=== PATIENT | female | born 1950 | race Caucasian/White ===

== ENCOUNTER → 2018-05-20 | Day surgery (SDC) | payer MEDICARE, OTHER ==
[2018-05-17 14:19] VITALS: BMI 22.8
[~2018-05-20] MED LIST: ALPRAZolam 0.25 MG TAB PO PRN; ALPRAZolam 0.5 MG TAB PO PRN; ASPIRIN 325 MG TAB PO ONE; ATORVASTATIN 80 MG TAB PO ONE; IOPAMIDOL-250 100ML BTL INTRAARTER ONE; IOPAMIDOL-370 125ML BTL INJ ONE; LIDOCAINE 1% INJ 10MG/ML (20 ML MDV) SQ ONE; MIDAZOLAM 2 MG/2 ML VIAL IV ONE; ONDANSETRON 4 MG/2 ML VIAL ONE; RX INFO: IV CONTRAST WAS GIVEN 1 EACH MISC MISCELLANE PRN; SODIUM CHLORIDE 0.9% 1,000 ML IV SCH; SODIUM CHLORIDE 0.9% 1,000 ML in EMPTY BAG 1 BAG IV ONE; fentaNYL (PF) 50 MCG/ML 2 ML AMP IV ONE; hydrALAZINE HCL 20 MG/ML 1 ML VIAL IVP STA; hydrALAZINE HCL 20 MG/ML 1 ML VIAL ONE
[2018-05-20 08:29] VITALS: TEMP 97.8
[2018-05-20 08:51] LABS: Basophils % (A) 0 %; Eosinophils # (A) 0.2 k/uL (0-0.7); Eosinophils % (A) 2 %; HCT 42.4 % (34.0-46.0); HGB 13.5 gm/dL (11.4-16.0); Lymphocytes # (A) 1.5 k/uL (1.0-4.8); Lymphocytes % (A) 15 %; MCH 30.4 pg (25.0-35.0); MCHC 31.8 g/dL (31.0-37.0); MCV 95.6 fL (80.0-100.0); Mean Platelet Volume 8.7; Monocytes # (A) 0.4 k/uL (0-1.0); Monocytes % (A) 4 %; Neutrophils # (A) 7.6 k/uL (1.3-7.7); Neutrophils % (A) 77 %; Platelet Count 230 k/uL (150-450); RBC 4.43 m/uL (3.80-5.40); RDW 14.5 % (11.5-15.5); WBC 9.9 k/uL (3.8-10.6)
[2018-05-20 09:00] LABS: Calcium 9.6 mg/dL (8.4-10.2)
--- NOTE | 2018-05-20 11:13 | CC ---
CARDIAC CATHETERIZATION REPORT DATE OF SERVICE: 05/20/2018 PERFORMING PHYSICIAN: Anirudh Banuelos MD, [employer]. PROCEDURE PERFORMED: 1. Selective right and left coronary angiogram. 2. Left heart catheterization. 3. Abdominal aortogram. 4. Gradient measurement across the distal abdominal aorta. INDICATION: This is a pleasant 67-year-old female patient with known history of coronary artery disease and prior stenting of the RCA and left circumflex, who was experiencing symptoms of chest discomfort concerning for angina. She also was experiencing bilateral lower extremities discomfort. She is known to have peripheral arterial disease and known to have intermediate disease involving the infrarenal aorta. Because of that, she was brought today to undergo a heart catheterization and abdominal aortogram. APPROACH: Right common femoral artery. COMPLICATION: None. LEVEL OF SEDATION: Moderate with sedation length of 20 minutes. PROCEDURE DESCRIPTION: After obtaining an informed consent, the patient was brought to the cardiac minilab operator. The right common femoral artery was cannulated using micropuncture technique and a micropuncture wire passed easily. Then I placed a 6-[place] sheath in the right common femoral artery. After that, I did selective right and left coronary angiogram using JR4 and JL4 catheters. Left heart catheterization was performed using 6-[place]ian pigtail catheter. Then I did an abdominal aortogram using 6-[place]ian pigtail catheter as well. The procedure was completed without any complication. SELECTIVE CORONARY ANGIOGRAM: 1. The right coronary artery is a large caliber vessel and it is a dominant vessel. The proximal RCA is stented with mild in-stent restenosis appeared to be in the range of 30%. The mid RCA has mild disease only and RCA distally appeared to have mild disease only and bifurcates into PDA and PLV branches, both are angiographically normal. 2. The left main is angiographically normal. It bifurcates into the left circumflex and left anterior descending artery. 3. The left circumflex is a medium to large caliber vessel. It is a nondominant vessel. The ostial and proximal left circumflex appeared to have a plaque in the range of 50%. The proximal left circumflex is stented and the stent is patent. The left circumflex distally appeared to be angiographically normal with the circ in the midportion gives rise into OM branch which appeared to be angiographically normal. 4. The LAD, the proximal LAD appeared to have mild disease only. It gives rise into a large diagonal branch which appeared to be angiographically normal. The mid LAD appeared to be normal and the LAD distally appeared to be normal as well. HEMODYNAMICS: The left ventricular end-diastolic pressure appeared to be in the range of 12 mmHg with mild gradient across the aortic valve. ABDOMINAL AORTOGRAM: The abdominal aortogram was performed in the AP projection and using a power injection under DSA. The angiogram revealed intermediate disease involving the distal abdominal aorta just above the bifurcation in to right and left common iliac artery and disease appeared to be in the range of 50%, seems to be angiographically unchanged compared before. I did a gradient measurement across it and that came into be at 15 mmHg, which is still not significant. CONCLUSION: 1. Mild in-stent restenosis involving right coronary artery stent proximally. 2. Patent stent in the proximal left circumflex. There was intermediate disease involving the ostial left circumflex. 3. Mild disease involving the left anterior descending artery. 4. Intermediate disease involving the distal abdominal aorta. A gradient measurement across it came into be 15 mmHg. POSTPROCEDURE MANAGEMENT: 1. Maximize medical treatment. 2. Follow up with the patient. MMODL / IJN: [id number] /
[2018-05-20 11:41] VITALS: RESP 16
[2018-05-20 14:01] VITALS: BP 123/72; PULSE 75
== END ==
LOC: CATHCVL 08:07
PROVIDERS: ATTEND Internal Medicine Interventional Cardiology
DX: I25.10 Atherosclerotic heart disease of native coronary artery without angina pectoris (principal); T82.855A Stenosis of coronary artery stent, initial encounter; I77.9 Disorder of arteries and arterioles, unspecified; I73.9 Peripheral vascular disease, unspecified; I10 Essential (primary) hypertension; E78.5 Hyperlipidemia, unspecified; E78.00 Pure hypercholesterolemia, unspecified; J44.9 Chronic obstructive pulmonary disease, unspecified; Z95.5 Presence of coronary angioplasty implant and graft; Z79.82 Long term (current) use of aspirin; Z79.51 Long term (current) use of inhaled steroids; Z79.899 Other long term (current) drug therapy; Z79.1 Long term (current) use of non-steroidal anti-inflammatories (NSAID); Z82.49 Family history of ischemic heart disease and other diseases of the circulatory system; Z72.0 Tobacco use; Z88.8 Allergy status to other drugs, medicaments and biological substances; Z88.5 Allergy status to narcotic agent
CPT/HCPCS: 93458; 75625; 75716; 80048; 85025; C1760; C1894; C1769 ×2; J2250; J0360; J2001; J3010; Q9966; Q9967; 36200

== ENCOUNTER → 2021-05-08 | Outpatient (CLI) | payer MEDICARE ==
--- NOTE | 2021-05-11 03:25 | MR ---
EXAMINATION TYPE: MR wrist LT wo con DATE OF EXAM: 05/08/2021 COMPARISON: None HISTORY: Pain in left wrist for a couple months. Multiplanar multiecho imaging of the left wrist without contrast. Carpal bones are intact. Radiocarpal joint is intact. The metacarpals are intact. Intercarpal joint s paces are fairly normal. I see no focal bone destruction. The triangular cartilage appears fairly nor mal. The wrist the ulnar collateral ligament shows increased signal and separation from the distal ul na. IMPRESSION: There is evidence of a tear of the ulnar collateral ligament with edema and soft tissue swelling. No fracture line seen.
== END | disposition home or self-care (01) ==
LOC: RADMRIMAIN 11:48
PROVIDERS: ATTEND Orthopaedic Surgery
DX: S63.592A Other specified sprain of left wrist, initial encounter (principal); X58.XXXA Exposure to other specified factors, initial encounter

== ENCOUNTER 2022-05-09 02:15 | Observation (INO) | payer MEDICARE, OTHER ==
[2022-05-09] MEDS ORDERED: LORazepam 2 MG/ML INJ IV STA (02:24)
[2022-05-09 02:41] LABS: Basophils % (A) 0 %; Eosinophils # (A) 0.1 k/uL (0-0.7); Eosinophils % (A) 1 %; HCT 37.9 % (34.0-46.0); HGB 12.7 gm/dL (11.4-16.0); Lymphocytes # (A) 0.5 k/uL (1.0-4.8); Lymphocytes % (A) 4 %; MCH 31.4 pg (25.0-35.0); MCHC 33.5 g/dL (31.0-37.0); MCV 93.6 fL (80.0-100.0); Mean Platelet Volume 10.2; Monocytes # (A) 0.1 k/uL (0-1.0); Monocytes % (A) 1 %; Neutrophils # (A) 10.9 k/uL (1.3-7.7); Neutrophils % (A) 94 %; Platelet Count 188 k/uL (150-450); RBC 4.05 m/uL (3.80-5.40); RDW 13.7 % (11.5-15.5); WBC 11.6 k/uL (3.8-10.6)
[2022-05-09 02:53] LABS: Albumin 3.4 g/dL (3.5-5.0); Calcium 8.6 mg/dL (8.4-10.2); Magnesium 1.4 mg/dL (1.6-2.3); Potassium 4.3 mmol/L (3.5-5.1); Total Bilirubin 0.4 mg/dL (0.2-1.3); Total Protein 5.8 g/dL (6.3-8.2)
[2022-05-09 03:03] LABS: INR 0.9 (<1.2); Partial Thromboplastin Time 21.7 sec (22.0-30.0); Prothrombin Time 10.2 sec (9.0-12.0)
[2022-05-09] MEDS ORDERED: KETOROLAC 15 MG/ML 1 ML VIAL IVP STA (03:23)
[2022-05-09] MEDS: MAGNESIUM SULFATE-D5W PMX 1 GM in DEXTROSE/WATER 1 100ML.BAG IVPB SCH ×2 (03:28→04:14)
[2022-05-09] MEDS ORDERED: NALOXONE 0.4 MG/ML 1 ML VIAL IV PRN (03:29)
--- NOTE | 2022-05-09 03:29 | ED ---
General Adult HPI - General Chief complaint: Chest Pain Stated complaint: chest pain Time Seen by Provider: 05/09/22 02:18 Source: patient, RN notes reviewed, old records reviewed Mode of arrival: ambulatory Limitations: no limitations - History of Present Illness Initial comments: Patient is a 71-year-old female with past medical history remarkable for anxiety, COPD, [place] who presents emergency Department complaining of chest pain earlier this evening. Was a typical style left-sided chest pain with sudden onset and she states no other symptoms.. History of 3 stents placed in 2009. She had chest pain at home earlier this evening with no associated complaints. States it was left-sided. Presented to [facility] which was found to have hypertension. They did order nitro/aspirin however her chest pain resolved prior to receiving any form of medication per ER doc at [place]. Blood pressure improved as well. She did receive an anxiolytic which did help with her anxiety. This did seem to help with her symptoms as well. Workup at the outside hospital was unremarkable. Chest x-ray showed no acute cardiopulmonary process per read. EKG unremarkable. I spoke with the transfer physician, who was looking to transfer the patient to our facility as her pharmacy technology instructor is here. Transfer was accepted. Patient arrives in his remaining asymptomatic but states she does feel somewhat anxious. Denies any chest pain, shortness of breath or other symptoms at this time. Presents for further evaluation for her cardiac symptoms at the outside facility that had a negative workup. - Related Data Home Medications Medication Instructions Recorded Confirmed ALPRAZolam 0.25 mg PO DAILY 06/20/14 05/20/18 Albuterol Sulfate [Proair Hfa] 2 puff INHALATION BID 06/20/14 05/20/18 Fluticasone Propionate 1 spr EA NOSTRIL 06/20/14 05/20/18 hydroCHLOROthiazide [Hydrodiuril] 12.5 mg PO DAILY 06/20/14 05/17/18 Pantoprazole Sodium [Protonix] 40 mg PO DAILY 12/30/15 05/17/18 Aspirin 81 mg PO HS 05/17/18 05/20/18 Budesonide-Formot 160-4.5 Mcg 2 puff INHALATION BID 05/17/18 05/20/18 [Symbicort 160-4.5 Mcg Inhaler] Fexofenadine HCl [Philomena Allergy] 180 mg PO DAILY 05/17/18 05/20/18 Potassium Chloride ER [K-Dur 10] 20 meq PO DAILY 05/17/18 05/17/18 Raloxifene [Evista] 60 mg PO DAILY 05/17/18 05/17/18 Umeclidinium [place] [Incruse 1 puff INHALATION DAILY 05/17/18 05/17/18 Ellipta] Zolpidem Tartrate [Ambien] 10 mg PO HS 05/17/18 05/20/18 carvediloL [Coreg] 6.25 mg PO HS 05/17/18 05/20/18 carvediloL [Coreg] 12.5 mg PO DAILY 05/17/18 05/20/18 Previous Rx's Medication Instructions Recorded Atorvastatin [Lipitor] 80 mg PO HS #90 tab 01/04/16 Losartan [Cozaar] 50 mg PO DAILY #90 tab 01/04/16 Allergies Allergy/AdvReac Type Severity Reaction Status Date / Time cilostazol [From Pletal] Allergy MIGRAINE Verified 05/09/22 02:18 codeine phosphate Allergy Hallucinati Verified 05/09/22 02:18 [From Tylenol-Codeine #3] ons isosorbide mononitrate Allergy MIGRAINE Verified 05/09/22 02:18 [From Imdur] Latex, Natural Rubber Allergy Unknown Verified 05/09/22 02:18 nitroglycerin AdvReac migraine Verified 05/09/22 02:18 pseudoephedrine HCl AdvReac INCREASED Verified 05/09/22 02:18 [From Sudafed] HEART RATE Review of Systems ROS Statement: Those systems with pertinent positive or pertinent negative responses have been documented in the HPI. Review of Systems: CONST: Denies fever EYES: Denies blurry vision ENT: Denies nasal congestion C/V: Denies Chest pain RESP: Denies shortness of breath GI: Denies abdominal pain : Denies dysuria SKIN: Denies rash. MSK: Denies joint pain. NEURO: Denies headache ROS Other: All systems not noted in ROS Statement are negative. Past Medical History Past Medical History: Coronary Artery Disease (CAD), COPD, GERD/Reflux, Hyperlipidemia, Hypertension, Myocardial Infarction ([place]), Seizure Disorder Additional Past Medical History / Comment(s): STATES HAD MULT SEIZURES , HX MIGRAINE, ANGE FEET/LEGS NUMBNESS/BURNING, 2 thyroid nodules Last Myocardial Infarction Date:: 2009 History of Any Multi-Drug Resistant Organisms: None Reported Past Surgical History: Adenoidectomy, Appendectomy, Cholecystectomy, Heart Catheterization With Stent, Hysterectomy, Orthopedic Surgery, Tonsillectomy Additional Past Surgical History / Comment(s): LEFT SHOULDER, STENT X3, lasik surgery eye, Past Anesthesia/Blood Transfusion Reactions: Postoperative Nausea & Vomiting (PONV) Additional Past Anesthesia/Blood Transfusion Reaction / Comment(s): ALSO STATES "HAD HARD TIME WAKING UP" POST CHOLECYSTECTOMY Date of Last Stent Placement:: 2015 Past Psychological History: Anxiety Smoking Status: Former smoker Past Alcohol Use History: Occasional Past Drug Use History: None Reported - Past Family History Father Family Medical History: Myocardial Infarction ([place]) Mother Family Medical History: Cancer Additional Family Medical History / Comment(s): BREAST General Exam - General Exam Comments Initial Comments: General: Appears in no acute distress. HEAD: Normal with no signs of head trauma. EYES: PERRLA, EOMI, conjunctiva normal, no discharge. ENT: Hearing grossly intact, normal oropharynx. RESPIRATORY: Clear breath sounds bilaterally. No wheezes, rales, or rhonchi. C/V: Regular rate and rhythm. S1 and S2 auscultated, no edema, peripheral pulses 2+ and intact throughout ABD: Abd is soft, nontender, nondistended EXT: Normal range of motion, no obvious deformity SKIN: No rashes or lesions observed on exposed skin. NEURO: Alert and oriented 4. No focal deficits. Limitations: no limitations Course Vital Signs 05/09/22 05/09/22 02:19 02:30 Temperature 98.2 F Pulse Rate 84 83 Respiratory 18 16 Rate Blood Pressure 181/103 161/90 O2 Sat by Pulse 99 94 L Oximetry Medical Decision Making - Medical Decision Making Based on the patient's presentation and physical exam, I'm concerned for cardiopulmonary etiology for her symptoms that she expressed earlier this evening. Heart score is moderate, and therefore she was transferred here for cardiac observation to be evaluated by her pharmacy technology instructor. She already received aspirin at the outside facility. Did not require any medications to improve her symptoms at the outside facility. Does feel somewhat anxious and I did order an Ativan for her at this time. We will repeat blood work as well as EKG. Vital signs within acceptable limits. EKG showed no signs of acute ischemia. Laboratory studies show mild hypomagnesemia. Otherwise no significant findings. Troponin is undetectable. On reevaluation, patient does have a mild headache and she will be given Toradol. I updated her on her negative workup. She'll be admitted to observation. She was in agreement this plan. We will trend her troponins. Cardiology will be consulted. I spoke with city call observation, Dr. Rosas of [facility] who accepted the patient. Patient was admitted in stable condition to telemetry bed. Patient was in agreement this plan. - Lab Data Result diagrams: 05/09/22 02:32 05/09/22 02:32 Lab Results 05/09/22 05/09/22 05/09/22 Range/Units 02:32 02:32 02:32 WBC 11.6 H (3.8-10.6) k/uL RBC 4.05 (3.80-5.40) m/uL Hgb 12.7 (11.4-16.0) gm/dL Hct 37.9 (34.0-46.0) % MCV 93.6 (80.0-100.0) fL MCH 31.4 (25.0-35.0) pg MCHC 33.5 (31.0-37.0) g/dL RDW 13.7 (11.5-15.5) % Plt Count 188 (150-450) k/uL MPV 10.2 Neutrophils % 94 % Lymphocytes % 4 % Monocytes % 1 % Eosinophils % 1 % Basophils % 0 % Neutrophils # 10.9 H (1.3-7.7) k/uL Lymphocytes # 0.5 L (1.0-4.8) k/uL Monocytes # 0.1 (0-1.0) k/uL Eosinophils # 0.1 (0-0.7) k/uL Basophils # 0.0 (0-0.2) k/uL PT 10.2 (9.0-12.0) sec INR 0.9 (<1.2) APTT 21.7 L (22.0-30.0) sec Sodium 140 (137-145) mmol/L Potassium 4.3 (3.5-5.1) mmol/L Chloride 110 H (98-107) mmol/L Carbon Dioxide 21 L (22-30) mmol/L Anion Gap 9 mmol/L BUN 31 H (7-17) mg/dL Creatinine 1.08 H (0.52-1.04) mg/dL Est GFR (CKD-EPI)AfAm 59 (>60 ml/min/1.73 sqM) Est GFR (CKD-EPI)NonAf 52 (>60 ml/min/1.73 sqM) Glucose 174 H (74-99) mg/dL Calcium 8.6 (8.4-10.2) mg/dL Magnesium 1.4 L (1.6-2.3) mg/dL Total Bilirubin 0.4 (0.2-1.3) mg/dL AST 28 (14-36) U/L ALT 21 (4-34) U/L Alkaline Phosphatase 93 (38-126) U/L Troponin I (0.000-0.034) ng/mL Total Protein 5.8 L (6.3-8.2) g/dL Albumin 3.4 L (3.5-5.0) g/dL 05/09/22 Range/Units 02:32 WBC (3.8-10.6) k/uL RBC (3.80-5.40) m/uL Hgb (11.4-16.0) gm/dL Hct (34.0-46.0) % MCV (80.0-100.0) fL MCH (25.0-35.0) pg MCHC (31.0-37.0) g/dL RDW (11.5-15.5) % Plt Count (150-450) k/uL MPV Neutrophils % % Lymphocytes % % Monocytes % % Eosinophils % % Basophils % % Neutrophils # (1.3-7.7) k/uL Lymphocytes # (1.0-4.8) k/uL Monocytes # (0-1.0) k/uL Eosinophils # (0-0.7) k/uL Basophils # (0-0.2) k/uL PT (9.0-12.0) sec INR (<1.2) APTT (22.0-30.0) sec Sodium (137-145) mmol/L Potassium (3.5-5.1) mmol/L Chloride (98-107) mmol/L Carbon Dioxide (22-30) mmol/L Anion Gap mmol/L BUN (7-17) mg/dL Creatinine (0.52-1.04) mg/dL Est GFR (CKD-EPI)AfAm (>60 ml/min/1.73 sqM) Est GFR (CKD-EPI)NonAf (>60 ml/min/1.73 sqM) Glucose (74-99) mg/dL Calcium (8.4-10.2) mg/dL Magnesium (1.6-2.3) mg/dL Total Bilirubin (0.2-1.3) mg/dL AST (14-36) U/L ALT (4-34) U/L Alkaline Phosphatase (38-126) U/L Troponin I <0.012 (0.000-0.034) ng/mL Total Protein (6.3-8.2) g/dL Albumin (3.5-5.0) g/dL - EKG Data -: EKG Interpreted by Me EKG Comments: 12-lead Electrocardiogram Interpretation Note EKG was reviewed and interpreted by myself. 12-lead ECG performed at [facility] is interpreted by me as revealing normal sinus rhythm with occasional PVC at a rate of 80 beats per minute. [place] is normal. GA interval is 172 ms, QRS duration is 93 ms, QTc is 415 ms.. There were no ST or T wave abnormalities to suggest myoc ardial ischemia or injury. R wave progression across the precordium was satisfactory. By my interpretation this EKG is non-diagnostic for acute ischemia. No significant changes when compared with prior EKGs from 2016, or with EKG from [place]. Disposition Clinical Impression: Chest pain Disposition: ADMITTED IP TO THIS [facility] Condition: Stable Referrals: Michael Vergara MD [Primary Care Provider] - 1-2 days Time of Disposition: 03:15
[2022-05-09] MEDS ORDERED: ASPIRIN 325 MG TAB PO STA (04:19)
[2022-05-09] MEDS ORDERED: ATORVASTATIN 80 MG TAB PO STA (04:19)
--- NOTE | 2022-05-09 04:19 | P.HPIM ---
History of Present Illness H&P Date: 05/09/22 Patient is a 71-year-old female with a PMH of coronary artery disease status post 3 stents, hypertension, hyperlipidemia, COPD, and anxiety who presents to the emergency room with complaints of chest discomfort. The patient reports that she suddenly developed chest discomfort yesterday evening, pressure and sharp in nature, substernal and left-sided, nonradiating, constant, 5 out of 10 on maximal intensity. She initially attributed her symptoms to her anxiety but after his symptoms worsened, she decided to go to the emergency room. The patient initially presented to [facility] where she was noted to be in hypertensive urgency. She was given anxiolytics and antihypertensives and subsequently sent to [facility] emergency room for cardiology evaluation. Patient reports that her chest discomfort Ramirez significantly improved after arrival at the emergency room, currently rated at a 2 out of 10. She denied experiencing shortness of breath, nausea, vomiting, diaphoresis, or dizziness. Denied fever, chills, cough, lower extremities swelling, lower extremity pain. EKG in the emergency room reveals sinus rhythm with PVCs at 80 bpm. Laboratory evaluation revealed a troponin of less than 0.012. Review of systems: Pertinent positives and negatives as discussed in HPI, a complete review of systems was performed and all other systems are negative. Physical examination: General: non toxic, no distress, appears at stated age, normal weight Derm: no unusual rashes/lesions, warm Head: atraumatic, normocephalic, symmetric Eyes: EOMI, no lid lag, anicteric sclera, pupils equal round reactive to light ENT: Nose and ears atraumatic Neck: No cervical lymphadenopathy, trachea midline, supple Mouth: no lip lesion, mucus membranes moist Cardiovascular: S1S2 reg, no murmur, positive dorsalis pedis pulse bilateral, no edema Lungs: CTA bilateral, no rhonchi, no rales, no accessory muscle use Abdominal: soft, nontender to palpation, no guarding Ext: muscle strength 5 out of 5 in all 4 extremities grossly, no gross muscle atrophy, no contractures, Neuro: CN II-XI grossly intact, no gross focal neuro deficits Psych: Alert, oriented, appropriate affect Assessment/plan Chest pain, rule out ACS -Cardiology consult -Cardiac monitoring -Trend troponin -Continue with aspirin, statin -Echocardiogram Prerenal azotemia -Gentle IV hydration -Monitor BMP Leukocytosis -No signs of active infection at this time -Likely due to acute stressor DVT prophylaxis -Heparin subcu The patient is admitted with an anticipated less than 2 midnight stay for evaluation of chest pain. CODE STATUS: Full Code Discussed with: Patient Anticipated discharge date: In a.m. Anticipated discharge place: Home Past Medical History Past Medical History: Coronary Artery Disease (CAD), COPD, GERD/Reflux, Hyperlipidemia, Hypertension, Myocardial Infarction ([place]), Seizure Disorder Additional Past Medical History / Comment(s): STATES HAD MULT SEIZURES INFANT, HX MIGRAINE, ANGE FEET/LEGS NUMBNESS/BURNING, 2 thyroid nodules Last Myocardial Infarction Date:: 2009 History of Any Multi-Drug Resistant Organisms: None Reported Past Surgical History: Adenoidectomy, Appendectomy, Cholecystectomy, Heart Catheterization With Stent, Hysterectomy, Orthopedic Surgery, Tonsillectomy Additional Past Surgical History / Comment(s): LEFT SHOULDER, STENT X3, lasik surgery eye, Past Anesthesia/Blood Transfusion Reactions: Postoperative Nausea & Vomiting (PONV) Additional Past Anesthesia/Blood Transfusion Reaction / Comment(s): ALSO STATES "HAD HARD TIME WAKING UP" POST CHOLECYSTECTOMY Date of Last Stent Placement:: 2015 Past Psychological History: Anxiety Smoking Status: Former smoker Past Alcohol Use History: Occasional Past Drug Use History: None Reported - Past Family History Father Family Medical History: Myocardial Infarction ([place]) Mother Family Medical History: Cancer Additional Family Medical History / Comment(s): BREAST Medications and Allergies Home Medications Medication Instructions Recorded Confirmed Type ALPRAZolam 0.25 mg PO DAILY 06/20/14 05/20/18 History Albuterol Sulfate [Proair Hfa] 2 puff INHALATION BID 06/20/14 05/20/18 History Fluticasone Propionate 1 spr EA NOSTRIL HS 06/20/14 05/20/18 History hydroCHLOROthiazide [Hydrodiuril] 12.5 mg PO DAILY 06/20/14 05/17/18 History Pantoprazole Sodium [Protonix] 40 mg PO DAILY 12/30/15 05/17/18 History Atorvastatin [Lipitor] 80 mg PO HS #90 tab 01/04/16 05/20/18 Rx Losartan [Cozaar] 50 mg PO DAILY #90 tab 01/04/16 05/17/18 Rx Aspirin 81 mg PO HS 05/17/18 05/20/18 History Budesonide-Formot 160-4.5 Mcg 2 puff INHALATION BID 05/17/18 05/20/18 History [Symbicort 160-4.5 Mcg Inhaler] Fexofenadine HCl [Philomena Allergy] 180 mg PO DAILY 05/17/18 05/20/18 History Potassium Chloride ER [K-Dur 10] 20 meq PO DAILY 05/17/18 05/17/18 History Raloxifene [Evista] 60 mg PO DAILY 05/17/18 05/17/18 History Umeclidinium [place] [Incruse 1 puff INHALATION DAILY 05/17/18 05/17/18 History Ellipta] Zolpidem Tartrate [Ambien] 10 mg PO HS 05/17/18 05/20/18 History carvediloL [Coreg] 6.25 mg PO HS 05/17/18 05/20/18 History carvediloL [Coreg] 12.5 mg PO DAILY 05/17/18 05/20/18 History Allergies Allergy/AdvReac Type Severity Reaction Status Date / Time cilostazol [From Pletal] Allergy MIGRAINE Verified 05/09/22 02:18 codeine phosphate Allergy Hallucinati Verified 05/09/22 02:18 [From Tylenol-Codeine #3] ons isosorbide mononitrate Allergy MIGRAINE Verified 05/09/22 02:18 [From Imdur] Latex, Natural Rubber Allergy Unknown Verified 05/09/22 02:18 nitroglycerin AdvReac migraine Verified 05/09/22 02:18 pseudoephedrine HCl AdvReac INCREASED Verified 05/09/22 02:18 [From Sudafed] HEART RATE Physical Exam Vitals: Vital Signs Temp Pulse Resp BP Pulse Ox 05/09/22 03:30 78 15 143/66 96 05/09/22 02:30 83 16 161/90 94 L 05/09/22 02:19 98.2 F 84 18 181/103 99 Intake and Output 05/08/22 05/08/22 05/09/22 14:59 22:59 06:59 Other: Weight 61.689 kg Results CBC & Chem 7: 05/09/22 02:32 05/09/22 02:32 Labs: Abnormal Lab Results - Last 24 Hours (Table) 05/09/22 05/09/22 05/09/22 Range/Units 02:32 02:32 02:32 WBC 11.6 H (3.8-10.6) k/uL Neutrophils # 10.9 H (1.3-7.7) k/uL Lymphocytes # 0.5 L (1.0-4.8) k/uL APTT 21.7 L (22.0-30.0) sec Chloride 110 H (98-107) mmol/L Carbon Dioxide 21 L (22-30) mmol/L BUN 31 H (7-17) mg/dL Creatinine 1.08 H (0.52-1.04) mg/dL Glucose 174 H (74-99) mg/dL Magnesium 1.4 L (1.6-2.3) mg/dL Total Protein 5.8 L (6.3-8.2) g/dL Albumin 3.4 L (3.5-5.0) g/dL
[2022-05-09] MEDS ORDERED: HEPARIN SODIUM,PORCINE/PF 5,000 UNIT/0.5 ML SYRINGE SQ SCH (08:00)
[2022-05-09] MEDS ORDERED: SYMBICORT 160-4.5 MCG INHALER INHALATION SCH (08:00)
[2022-05-09] MEDS ORDERED: ALBUTEROL NEBULIZED 2.5 MG/3 ML INHALATION SCH (08:00)
[2022-05-09] MEDS ORDERED: ACETAMINOPHEN TAB 325 MG TAB PO PRN (08:36)
[2022-05-09 08:49] VITALS: BP 157/90; PULSE 77; RESP 14; TEMP 97.7
[2022-05-09] MEDS ORDERED: carvediloL 12.5 MG TAB PO SCH (09:00)
[2022-05-09] MEDS ORDERED: LOSARTAN 50 MG TAB PO SCH (09:00)
[2022-05-09] MEDS ORDERED: hydroCHLOROthiazide 12.5 MG CAP PO SCH (09:00)
--- NOTE | 2022-05-09 12:27 | CA ---
Transthoracic Echo Report Name: Sofia Lacey Age: 71 Gender: F : 1950 Exam Date: 05/09/2022 09:38 Exam Location: [place] [facility] Ht (in): 62 Wt (lb): 136 Ordering Physician: Caitlin Arciniega Attending/Referring Phys: Soap Maker Yarely Ortiz RDCS Procedure CPT: Indications: CP Cardiac Hx: Technical Quality: Good Contrast 1: N/A Total Dose (mL): Contrast 2: Total Dose (mL): MEASUREMENTS (Male / Female) Normal Values 2D ECHO LV Diastolic Diameter PLAX 3.2 cm 4.2 - 5.9 / 3.9 - 5.3 cm LV Systolic Diameter PLAX 2.8 cm IVS Diastolic Thickness 1.1 cm 0.6 - 1.0 / 0.6 - 0.9 cm LVPW Diastolic Thickness 1.1 cm 0.6 - 1.0 / 0.6 - 0.9 cm LV Relative Wall Thickness 0.7 LA Volume 40.8 cm??? 18 - 58 / 22 - 52 cm??? M-MODE MV E Point Septal Separation 1.3 cm DOPPLER MV Area PHT 3.4 cm??? Mitral E Point Velocity 48.6 cm/s Mitral A Point Velocity 81.5 cm/s Mitral E to A Ratio 0.6 MV Deceleration Time 221.9 ms MV E' Velocity 3.5 cm/s Mitral E to MV E' Ratio 13.8 TR Peak Velocity 223.9 cm/s TR Peak Gradient 20.1 mmHg Right Ventricular Systolic Press 24.5 mmHg FINDINGS Left Ventricle Left ventricular ejection fraction is estimated at 50-55 %. Mildly increased left ventricular wall thickness. Right Ventricle Normal right ventricular size and function. Right ventricular systolic pressure within normal limits. Right Atrium Normal right atrial size. Left Atrium Normal left atrial size. Mitral Valve Structurally normal mitral valve. Mild mitral regurgitation. Aortic Valve Trileaflet aortic valve. Tricuspid Valve Structurally normal tricuspid valve. Mild tricuspid regurgitation. Pulmonic Valve Structurally normal pulmonic valve. Pericardium Normal pericardium. Aorta Normal size aortic root and proximal ascending aorta. CONCLUSIONS Morning concentric left ventricular hypertrophy with normal LV systolic function Mild mitral regurgitation Mild tricuspid regurgitation Previewed by: Dr. Nikita Encarnacion MD (Electronically Signed) Final Date: 09 May 2022 12:26
--- NOTE | 2022-05-09 12:57 | P.DS ---
Providers Date of admission: 05/09/22 03:30 Expected date of discharge: 05/09/22 Attending physician: Derrick Rosas MD Consults: 05/09/22 03:29 Consult Physician Routine Consulting Provider: [facility] Consult Reason/Comments: chest pain Do you want consulting provider notified?: Yes, Notify in am Primary care physician: Michael Vergara MD Hospital Course: Discharge Diagnosis: Chest pain, acute coronary event ruled out. Hypertensive urgency, patient started on losartan 50 mg daily in addition to her normal antihypertensive medication regimen consisting of hydrochlorothiazide 25 mg daily, carvedilol 12.5 mg each morning and 6.25 mg nightly.. Hospital Course: Patient is a very pleasant 71-year-old female with a past medical history of coronary artery disease status post stent placement, hypertension, hyperlipidemia, COPD, and anxiety. She presented to the emergency department with a chief complaint of chest discomfort. Patient reported noticing some chest discomfort yesterday afternoon described as a sharp pain to left anterior chest. She reports initially she contributed these symptoms to her anxiety but states she checked her blood pressure and noticed that it was a very high so she became even more anxious and started to have severe sharp pain to left anterior chest and again took her blood pressure and states that it was greater than 200 systolic so she came to the emergency department for evaluation. Patient initially presented to [facility] where she was found to be in hypertensive urgency and was given anxiolytics and antihypertensive and transferred to our facility for closer monitoring and evaluation by cardiology. Upon arrival to our facility blood pressure 181/103 with repeat blood pressure after 10 minutes 161/90 and 1 hour 143/66. EKG showing sinus rhythm at 80 bpm with occasional PVC and ST depression in leads V4 through V6. Patient was started on an additional blood pressure medicine losartan 50 mg daily in addition to her carvedilol 12.5 mg each morning and 6.25 mg nightly. Blood pressure is better controlled this morning. Patient is free from any chest pain or discomfort. Troponins were trended all negative at less than 0.0123 draws. Patient did have mild elevation of WBCs at 11.6 believed to be reactive to stressors. An echocardiogram was completed revealing normal EF of 50-55% with mild mitral and tricuspid regurgitation. Physical exam: Patient seen and examined at bedside. Vital signs reviewed and stable. General: Nontoxic, no distress and appears stated age. Derm: Skin warm and dry, normal coloration for ethnicity. Head: Atraumatic, normocephalic and symmetric. Eyes: EOMs intact, no lid lag, and anicteric sclera Mouth: no lip lesions, mucus membranes moist Cardiovascular: regular rate and rhythm with normal S1S2, no murmur, positive posterior tibial pulses bilaterally, and cap refill < 2 seconds. Lungs: Respirations even, regular, and unlabored on room air. Lungs CTA bilaterally, no rhonchi, no rales, no wheezing, and no accessory muscle usage. Abdominal: soft, nontender to palpation, no guarding, no appreciable organomegaly Ext: ROM intact. No gross muscle atrophy, no edema, no contractures Neuro: Speech clear, face symmetrical and CN II-XII grossly intact with no noted focal neuro deficits Psych: Alert and oriented to person, place, time, and situation. Appropriate and pleasant affect. A total of 34 minutes of time were spent preparing this complex discharge summary. Pt was discharged on 05/09/22 at 12:29 PM. I reviewed the documentation as provided by the ADRIANA above, who is the original author of this note. I agree with the documented assessment and plan, with the following changes: none Patient Condition at Discharge: Stable Plan - Discharge Summary New Discharge Prescriptions: New Losartan [Cozaar] 50 mg PO DAILY 30 Days #30 tab Continue Albuterol Sulfate [Proair Hfa] 2 puff INHALATION RT-BID PRN PRN Reason: Shortness Of Breath ALPRAZolam 0.25 mg PO DAILY Pantoprazole Sodium [Protonix] 40 mg PO DAILY Umeclidinium Mobile [Incruse Ellipta] 1 puff INHALATION RT-DAILY carvediloL [Coreg] 6.25 mg PO HS Zolpidem Tartrate [Ambien] 10 mg PO HS Ezetimibe [Zetia] 10 mg PO DAILY Olmesartan [Benicar] 5 mg PO HS hydroCHLOROthiazide 25 mg PO DAILY Montelukast Sodium [Singulair] 10 mg PO DAILY carvediloL [Coreg] 12.5 mg PO DAILY Discontinued Potassium Chloride [Klor-Con M20] 20 meq PO DAILY Discharge Medication List ALPRAZolam 0.25 mg PO DAILY 06/20/14 [History] Albuterol Sulfate [Proair Hfa] 2 puff INHALATION RT-BID PRN 06/20/14 [History] Pantoprazole Sodium [Protonix] 40 mg PO DAILY 12/30/15 [History] Umeclidinium Mobile [Incruse Ellipta] 1 puff INHALATION RT-DAILY 05/17/18 [History] Zolpidem Tartrate [Ambien] 10 mg PO HS 05/17/18 [History] carvediloL [Coreg] 6.25 mg PO HS 05/17/18 [History] Ezetimibe [Zetia] 10 mg PO DAILY 05/09/22 [History] Losartan [Cozaar] 50 mg PO DAILY 30 Days #30 tab 05/09/22 [Rx] Montelukast Sodium [Singulair] 10 mg PO DAILY 05/09/22 [History] Olmesartan [Benicar] 5 mg PO HS 05/09/22 [History] carvediloL [Coreg] 12.5 mg PO DAILY 05/09/22 [History] hydroCHLOROthiazide 25 mg PO DAILY 05/09/22 [History] Follow up Appointment(s)/Referral(s): Michael Vergara MD [Primary Care Provider] - 1-2 days Nikita Encarnacion MD [STAFF PHYSICIAN] - 1 Week Patient Instructions/Handouts: Chest Pain (DC), Hypertension (DC) Activity/Diet/Wound Care/Special Instructions: Activity: As tolerated. Take breaks as needed. Diet: Heart healthy and carb consistent diet. Avoid salts, or foods with hidden salts such as canned or boxed foods and frozen dinners. Extra salt makes your heart work harder and traps the fluid in your body for longer. Special Instructions: Take all of your medications as directed and remember to keep all of your doctor's appointments and follow-up as needed. Thank you for allowing us to participate in your care, it was truly a pleasure having you for our patient!!! Discharge Disposition: HOME SELF-CARE
[2022-05-09] MEDS ORDERED: carvediloL 6.25 MG TAB PO SCH (21:00)
--- NOTE | 2022-05-10 23:28 | CONS ---
CONSULTATION HISTORY OF PRESENT ILLNESS: Sofia is a 71-year-old lady with history of coronary artery disease, hypertension, diabetes, dyslipidemia, who presented to the hospital complaining of chest pain. The patient's recently underwent surgery and she is under extraordinary physical and emotional stress. She has known CAD and underwent cardiac catheterization in 2018 that revealed mild in-stent restenosis within the right coronary artery and a patent stent within the circumflex coronary artery with a mild disease in the LAD. At the time of my evaluation, she appears comfortable and free of symptoms. She is somewhat emotional and tearful and most of her symptoms seem to be related to anxiety. Two sets of troponins are negative. EKG shows nonspecific ST-T wave changes and PVCs. I gave the patient 2 options, either stay here and get a stress test on Wednesday or go home and schedule it as outpatient. The patient wishes to go home. PAST MEDICAL HISTORY: Significant for coronary artery disease, status post prior angioplasty, hypertension, COPD, diabetes, dyslipidemia. MEDICATIONS: As charted. ALLERGIES: As charted. FAMILY HISTORY: Negative for premature coronary artery disease. SOCIAL HISTORY: Negative for current smoking, ETOH abuse, or drug abuse. REVIEW OF SYSTEMS: review of systems has been performed, pertinents are as documented. PHYSICAL EXAMINATION: GENERAL: Comfortable at rest. VITAL SIGNS: Blood pressure is elevated at 157/90, O2 saturation is 97%, afebrile, heart rate is 77 beats per minute. NECK: There is no jugular venous distention. Carotid upstroke is normal. There is no bruit. CHEST: Good air entry bilaterally. HEART: First and second heart sounds. No gallop. No murmur. ABDOMEN: Soft, nontender. EXTREMITIES: Did not reveal any edema. Peripheral pulses are felt. ASSESSMENT: 1. Precordial chest pain, myocardial infarction ruled out. 2. Known coronary artery disease, status post prior angioplasty. PLAN: Continue with optimal medical therapy, ambulate her, and possible discharge home later this afternoon. I will do check her echocardiogram. MMODL / IJN: [id number] /
== END 2022-05-09 13:42 | disposition home or self-care (01) ==
LOC: EC 02:15 → 6NMEDSUR 03:30
PROVIDERS: ADMIT Internal Medicine; ATTEND Internal Medicine
DX: R07.89 Other chest pain (principal); I16.0 Hypertensive urgency; I11.9 Hypertensive heart disease without heart failure; E83.42 Hypomagnesemia; I49.3 Ventricular premature depolarization; I08.1 Rheumatic disorders of both mitral and tricuspid valves; D72.829 Elevated white blood cell count, unspecified; J44.9 Chronic obstructive pulmonary disease, unspecified; I25.10 Atherosclerotic heart disease of native coronary artery without angina pectoris; R79.89 Other specified abnormal findings of blood chemistry; G43.909 Migraine, unspecified, not intractable, without status migrainosus; I25.2 Old myocardial infarction; E11.9 Type 2 diabetes mellitus without complications; G40.909 Epilepsy, unspecified, not intractable, without status epilepticus; K21.9 Gastro-esophageal reflux disease without esophagitis; E04.2 Nontoxic multinodular goiter; E78.5 Hyperlipidemia, unspecified; F41.9 Anxiety disorder, unspecified; Z79.82 Long term (current) use of aspirin; Z79.51 Long term (current) use of inhaled steroids; Z79.899 Other long term (current) drug therapy; Z88.5 Allergy status to narcotic agent; Z88.8 Allergy status to other drugs, medicaments and biological substances; Z91.040 Latex allergy status; Z95.5 Presence of coronary angioplasty implant and graft; Z90.49 Acquired absence of other specified parts of digestive tract; Z90.710 Acquired absence of both cervix and uterus; Z87.891 Personal history of nicotine dependence; Z82.49 Family history of ischemic heart disease and other diseases of the circulatory system; Z80.3 Family history of malignant neoplasm of breast
CPT/HCPCS: 96376; 96372; 96365; 96375; 99285; 36415; 93005; 93306; 80053; 83735; 84484; 85025; 85610; 85730; G0378; J3475; J1885; J1644

== ENCOUNTER 2024-03-08 08:53 | Inpatient (IN) | payer MEDICARE ==
[2024-02-23] MEDS: IOPAMIDOL-370 100ML BTL INJ ONE (13:40)
[~2024-03-08 08:53] MED LIST changes: -ALPRAZolam 0.25 MG TAB PO PRN; -ALPRAZolam 0.5 MG TAB PO PRN; -ASPIRIN 325 MG TAB PO ONE; -ATORVASTATIN 80 MG TAB PO ONE; -IOPAMIDOL-250 100ML BTL INTRAARTER ONE; -IOPAMIDOL-370 125ML BTL INJ ONE; +LIDOCAINE 1% INJ 10MG/ML (20 ML MDV) ONE; -LIDOCAINE 1% INJ 10MG/ML (20 ML MDV) SQ ONE; -MIDAZOLAM 2 MG/2 ML VIAL IV ONE; +MIDAZOLAM 2 MG/2 ML VIAL ONE; -ONDANSETRON 4 MG/2 ML VIAL ONE; -RX INFO: IV CONTRAST WAS GIVEN 1 EACH MISC MISCELLANE PRN; -SODIUM CHLORIDE 0.9% 1,000 ML IV SCH; -SODIUM CHLORIDE 0.9% 1,000 ML in EMPTY BAG 1 BAG IV ONE; -fentaNYL (PF) 50 MCG/ML 2 ML AMP IV ONE; +fentaNYL (PF) 50 MCG/ML 2 ML AMP ONE; -hydrALAZINE HCL 20 MG/ML 1 ML VIAL IVP STA; -hydrALAZINE HCL 20 MG/ML 1 ML VIAL ONE
[2024-03-08] MEDS ORDERED: niCARdipine 25 MG/10 ML VIAL ONE ×2 (11:58)
[2024-03-08] MEDS ORDERED: LIDOCAINE 1% INJ 10MG/ML (20 ML MDV) ONE ×2 (11:58)
[2024-03-08] MEDS ORDERED: HEPARIN SODIUM 1,000 UN/ML (10ML VL) ONE ×2 (12:08)
[2024-03-08] MEDS ORDERED: MIDAZOLAM 2 MG/2 ML VIAL ONE ×2 (12:08)
[2024-03-08] MEDS: IOPAMIDOL-370 100ML BTL INJ ONE (13:03)
--- NOTE | 2024-03-10 15:57 | CC ---
CARDIAC CATHETERIZATION REPORT PERFORMING PHYSICIAN: Anirudh Banuelos MD. PROCEDURE PERFORMED: 1. Successful stenting of the left popliteal artery using 6.0 x 80 mm Zilver PTX drug- coated stent with an excellent angiographic results. 2. Adjunctive use of atherectomy and intravascular ultrasound. 3. Left lower extremity angiogram. 4. Gradient measurement across the right common iliac artery and aorta. 5. Ultrasound-guided access of the right common femoral artery. INDICATION: Symptomatic patient with abnormal arterial duplex study and abnormal angiogram. COMPLICATIONS: None. LEVEL OF SEDATION: Moderate with sedation length of 42 minutes. PROCEDURE DESCRIPTION: After obtaining an informed consent, the patient was brought to the cardiac phlebotomist lab assistant. The right common femoral artery was cannulated using micropuncture technique under ultrasound guidance. The micropuncture wire passed easily, then I placed a 6-Wolof 70 cm sheath at the right common femoral artery. After that, I was able to go up and over using 5-Wolof RIM catheter with 0.035 stiff Glidewire, and subsequently the sheath was advanced over the wire and dilator to the left common femoral artery. After that, left lower extremity angiogram was performed and showed tight lesion involving the left popliteal. Intravascular ultrasound was performed and showed the lesion to be mixed and not very calcified, so atherectomy was performed using the HawkOne device. Subsequently, balloon angioplasty was performed using 5 mm Chocolate balloon. An angiogram was performed and showed a dissection involving that lesion. I did stenting of the lesion using 6.0 x 80 mm Zilver PTX drug-coated stent, which was postdilated using 5 mm balloon with final angiogram showing excellent angiographic results, and completion angiogram showed excellent angiographic results as well. After that, I did a gradient measurement across the right common iliac artery which came into be not significant. The procedure was completed. There was no complication. Subsequently, the long sheath was exchanged over 0.035 stiff Glidewire into short sheath, and the procedure was completed with no complication. POSTPROCEDURE MANAGEMENT: 1. Dual anti-platelet therapy. 2. Risk factor modifications. 3. Follow up with the patient. MMODL / IJN: [id number] /
--- NOTE | 2024-03-16 14:52 | IR ---
EXAMINATION TYPE: IR angio abdominal w runoff Intraoperative/procedural fluoroscopic services were pr ovided. CLINICAL INDICATION:Female, 73 years old with history of left leg pain, 2.1min fluoro, 8.16Boai6; , P HH Total fluoroscopy time is 2.1 min. DAP: 0.997 Gycm2 Please see the operative/procedural note for further details.
--- NOTE | 2024-04-03 10:43 | DS ---
DISCHARGE SUMMARY BRIEF HISTORY: The patient is a very pleasant 73-year-old female patient who was admitted to the hospital yesterday and underwent JUNIOR [place] of the left SFA with excellent angiographic results with no complication. The patient was seen and evaluated this morning. She is asymptomatic and hemodynamically stable. The patient is going to be discharged home on dual anti- platelet therapy. She cannot take statin because she has statin intolerance. I will follow up with the patient next week in the office. The right groin is soft and nontender with no bruises. MMODL / IJN: [id number] /
== END 2024-03-09 09:47 | disposition home or self-care (01) | DRG 271 ==
LOC: CATHCVL 08:53 → 3SCARD 16:10
PROVIDERS: ADMIT Internal Medicine Interventional Cardiology; ATTEND Internal Medicine Interventional Cardiology
PROC: B44GZZ3 Ultrasonography of Left Lower Extremity Arteries, Intravascular (ICD-10-PCS; 2024-03-08)
PROC: 04CN3ZZ Extirpation of Matter from Left Popliteal Artery, Percutaneous Approach (ICD-10-PCS; principal; 2024-03-08 12:22)
PROC: 047N34Z Dilation of Left Popliteal Artery with Drug-eluting Intraluminal Device, Percutaneous Approach (ICD-10-PCS; 2024-03-08 12:22)
DX: I70.213 Atherosclerosis of native arteries of extremities with intermittent claudication, bilateral legs (principal); T82.855A Stenosis of coronary artery stent, initial encounter; J44.9 Chronic obstructive pulmonary disease, unspecified; I12.9 Hypertensive chronic kidney disease with stage 1 through stage 4 chronic kidney disease, or unspecified chronic kidney disease; E78.5 Hyperlipidemia, unspecified; I25.10 Atherosclerotic heart disease of native coronary artery without angina pectoris; Y71.1 Therapeutic (nonsurgical) and rehabilitative cardiovascular devices associated with adverse incidents; Z79.1 Long term (current) use of non-steroidal anti-inflammatories (NSAID); Z79.82 Long term (current) use of aspirin; Z79.51 Long term (current) use of inhaled steroids; Z82.49 Family history of ischemic heart disease and other diseases of the circulatory system; Z79.899 Other long term (current) drug therapy; Z88.5 Allergy status to narcotic agent; Z88.8 Allergy status to other drugs, medicaments and biological substances; Z91.040 Latex allergy status